=== PATIENT | female | born 1985 | race Caucasian/White ===

== ENCOUNTER 2020-08-25 20:00 | Emergency (ER) | payer OTHER ==
[~2020-08-25] VITALS: Ht 154.9 cm; Wt 59.4 kg
[2020-08-25 21:45] VITALS: BP 105/58
--- NOTE | 2020-08-25 21:45 | NUR ---
RECEIVED IN BED 1 WITH C/O TESTING POSITIVE FOR COVID YESTERDAY. HAS HAD SX X 3 DAYS. C/O TIGHTNESS IN CHEST, NAUSEA AND FATIGUE. IS AWAKE AND ALERT. SKIN WARM AND DRY. VSS PMH :DENIES ALLERGIES : CATS
[2020-08-25] MEDS ORDERED: HYDR200T94 PO (23:01)
[2020-08-25] MEDS ORDERED: ZINC50TA76 PO (23:01)
[2020-08-25 23:05] VITALS: BP 105/58
--- NOTE | 2020-08-25 23:05 | NUR ---
SEEN AND DISCHARGED PER ERMD. NO NURSING INTERVENTION REQUIRED
== END 2020-08-25 23:05 | disposition home or self-care (01) ==
LOC: MED 20:00
DX: U07.1 COVID-19 (principal); Z79.899 Other long term (current) drug therapy
CPT/HCPCS: 99283